=== PATIENT | female | born 1955 | race Caucasian/White ===

== ENCOUNTER 2020-09-23 07:15 | Emergency (ER) | payer MEDICARE ==
[2020-09-23] MEDS ORDERED: Ondansetron 4 MG Tab.DIS PO ONE (07:44)
[2020-09-23] MEDS ORDERED: Acetaminophen/HYDROcodone 325-5 MG Tab PO ONE (07:45)
[2020-09-23] MEDS ORDERED: Cyclobenzaprine 10 MG Tab PO ONE (08:30)
--- NOTE | 2020-09-23 09:52 | EDM.PDOC ---
ED HPI GENERAL MEDICAL PROBLEM - General Chief Complaint: Back Pain or Injury Stated Complaint: back pain Time Seen by Provider: 09/23/20 07:20 Source of Information: Reports: Patient History Limitations: Reports: No Limitations - History of Present Illness INITIAL COMMENTS - FREE TEXT/NARRATIVE: Patient presented to the ED because of low back pain for the past 2 months. The pain is sharp 10/10 at worst, radiating to the rt buttock. There is no lost of bowel or bladder control. She took Naproxen which was prescribed by her PMD without any significant relief. Left Lower Back Pain Score (Numeric/FACES): 8 - Related Data Allergies Allergy/AdvReac Type Severity Reaction Status Date / Time Sulfa (Sulfonamide Allergy Other Verified 09/23/20 07:34 Antibiotics) Home Meds: Home Meds Albuterol Sulfate [Proair Hfa] 1 - 2 puff INH Q4HR PRN 09/23/20 [History] Albuterol [Proventil Neb Soln] 1 inh NEB Q6HR PRN 09/23/20 [History] Aspirin [Halfprin] 81 mg PO DAILY 09/23/20 [History] Benazepril [Lotensin] 40 mg PO DAILY 09/23/20 [History] Cyclobenzaprine [Flexeril] 10 mg PO Q8H PRN #30 tab 09/23/20 [Rx] Empagliflozin [Jardiance] 10 mg PO DAILY 09/23/20 [History] Fluticasone Propion/Salmeterol [Advair 250-50 Diskus] 1 puff INH BID 09/23/20 [History] Gabapentin [Neurontin] 1 - 2 cap PO BEDTIME 09/23/20 [History] Latanoprost/Pf [Latanoprost 0.005% Eye Drop] 1 drop EYEBOTH BEDTIME 09/23/20 [History] Naproxen 500 mg PO BID 09/23/20 [History] Nitrofurantoin Monohyd/M-Cryst [Macrobid 100 mg Capsule] 100 mg PO BID #10 capsule 09/23/20 [Rx] Tiotropium [Spiriva HandiHaler] 1 cap INH DAILY 09/23/20 [History] atorvaSTATin [Lipitor] 40 mg PO DAILY 09/23/20 [History] glipiZIDE [Glucotrol XL] 10 mg PO ACBREAKFAST 09/23/20 [History] metFORMIN [Glucophage] 1,000 mg PO BID 09/23/20 [History] traMADol [Ultram] 50 mg PO Q8H PRN #15 tab 09/23/20 [Rx] Past Medical History HEENT History: Reports: Impaired Vision Cardiovascular History: Reports: Hypertension Respiratory History: Reports: COPD Gastrointestinal History: Reports: Cholelithiasis Genitourinary History: Reports: None L[employer]ILER History: Reports: Musculoskeletal History: Reports: Other (See Below) Other Musculoskeletal History: ankle fracture Neurological History: Reports: None Psychiatric History: Reports: None Endocrine/Metabolic History: Reports: Diabetes, Type II Hematologic History: Reports: None Oncologic (Cancer) History: Reports: None Dermatologic History: Reports: None - Infectious Disease History Infectious Disease History: Reports: None - Past Surgical History HEENT Surgical History: Reports: None Cardiovascular Surgical History: Reports: None Respiratory Surgical History: Reports: None GI Surgical History: Reports: Cholecystectomy Female Surgical History: Reports: None Endocrine Surgical History: Reports: None Neurological Surgical History: Reports: None Musculoskeletal Surgical History: Reports: None Dermatological Surgical History: Reports: None Social & Family History - Tobacco Use Tobacco Use Status *Q: Current Every Day Tobacco User Years of Tobacco use: 50 Packs/Tins Daily: 0.5 - Caffeine Use Caffeine Use: Reports: Coffee - Recreational Drug Use Recreational Drug Use: No ED ROS GENERAL - Review of Systems Review Of Systems: See Below Constitutional: Reports: No Symptoms HEENT: Reports: No Symptoms Respiratory: Reports: No Symptoms Cardiovascular: Reports: No Symptoms Endocrine: Reports: No Symptoms GI/Abdominal: Reports: No Symptoms : Reports: No Symptoms Musculoskeletal: Reports: Back Pain Skin: Reports: No Symptoms Neurological: Reports: No Symptoms Psychiatric: Reports: No Symptoms ED EXAM,LOWER BACK PAIN/INJURY - Physical Exam Exam: See Below Exam Limited By: No Limitations General Appearance: Alert, No Apparent Distress Ears: Normal External Exam, Normal Canal Nose: Normal Inspection, Normal Mucosa, No Blood Throat/Mouth: Normal Inspection, Normal Lips Head: Atraumatic, Normocephalic Neck: Normal Inspection, Supple, Non-Tender, Full Range of Motion Respiratory/Chest: No Respiratory Distress, Lungs Clear, Normal Breath Sounds, No Accessory Muscle Use, Chest Non-Tender Cardiovascular: Normal Peripheral Pulses, Regular Rate, Rhythm, No Edema, No Gallop, No JVD, No Murmur, No Rub GI/Abdominal: Normal Bowel Sounds, Soft, Non-Tender, No Organomegaly, No Distention, No Abnormal Bruit Back Exam: Normal Inspection, Full Range of Motion, Muscle Spasm Extremities: Normal Inspection, Normal Range of Motion, Non-Tender Neurological: Alert, Normal Mood/Affect, Normal Dorsiflexion Psychiatric: Normal Affect, Normal Mood Course - Vital Signs Text/Narrative:: Ct lumbar [id number] result Zofran ODT 4 mg PO x1 [place] 5mg, 2 PO x1 Last Recorded V/S: Last Vital Signs Temp 36.9 C 09/23/20 07:15 Pulse 95 09/23/20 07:15 Resp 16 09/23/20 07:15 BP 150/78 H 09/23/20 07:15 Pulse Ox 95 09/23/20 07:15 - Orders/Labs/Meds Orders: Active Orders 24 hr Category Date Time Status Lumbar Spine wo Cont [CT] Stat Exams 09/23/20 08:30 Taken Labs: Laboratory Tests 09/23/20 Range/Units 09:10 Urine Color Yellow (YELLOW) Urine Appearance Slightly cloudy (CLEAR) Urine pH 5.0 (5.0-6.5) Ur Specific [place] 1.030 H (1.010-1.025) Urine Protein Trace (NEGATIVE) mg/dL Urine Glucose (UA) Normal (NORMAL) mg/dL Urine Ketones Negative (NEGATIVE) mg/dL Urine Occult Blood Negative (NEGATIVE) Urine Nitrite Negative (NEGATIVE) Urine Bilirubin Small H (NEGATIVE) Urine Urobilinogen 1 H (NEGATIVE) mg/dL Ur Leukocyte Esterase Moderate H (NEGATIVE) Urine RBC 0-5 (0-5) Urine WBC 10-20 H (0-5) Ur Squamous Epith Cells Many H (NS,R,O) Urine Bacteria Moderate H (NS) Urine Yeast Moderate H (NS) Meds: Medications Discontinued Medications Generic Name Dose Route Start Last Admin Trade Name Freq PRN Reason Stop Dose Admin Hydrocodone Bitart/Acetaminophen 2 tab 09/23/20 07:45 09/23/20 07:55 Acetaminophen/Hydrocodone 325-5 Mg Tab PO 09/23/20 07:46 2 tab ONETIME ONE Administration Cyclobenzaprine HCl 10 mg 09/23/20 08:30 09/23/20 08:34 Cyclobenzaprine 10 Mg Tab PO 09/23/20 08:31 10 mg ONETIME ONE Administration Ondansetron HCl 4 mg 09/23/20 07:44 09/23/20 07:54 Ondansetron 4 Mg Tab.Dis PO 09/23/20 07:45 4 mg ONETIME ONE Administration Departure - Departure Time of Disposition: 10:30 Disposition: Home, Self-Care 01 Condition: Good Clinical Impression: Low back pain, DDD (degenerative disc disease), UTI (urinary tract infection) - Discharge Information Prescriptions: Cyclobenzaprine [Flexeril] 10 mg PO Q8H PRN #30 tab PRN Reason: Spasms Nitrofurantoin Monohyd/M-Cryst [Macrobid 100 mg Capsule] 100 mg PO BID #10 capsule traMADol [Ultram] 50 mg PO Q8H PRN #15 tab PRN Reason: Pain Referrals: Anitha Hines MD [Primary Care Provider] - Additional Instructions: Please read discharge instructions on low back pain, Disc Disease, and UTI Drink at least 2 liters of water daily Macrobid twice daily for 5 [id number] for your UTI) Tramadol 2tablets with tylenol 1000 and flexeril 10 mg every 8 mg every 8 hours as needed for pain and spasms Follow up as needed Sepsis Event Note (ED) - Evaluation Sepsis Screening Result: No Definite Risk - Focused Exam Vital Signs: Vital Signs Temp Pulse Resp BP Pulse Ox 09/23/20 07:15 36.9 C 95 16 150/78 H 95 - My Orders Last 24 Hours: My Active Orders 09/23/20 08:30 Lumbar Spine wo Cont [CT] Stat - Assessment/Plan Last 24 Hours: My Active Orders 09/23/20 08:30 Lumbar Spine wo Cont [CT] Stat
--- NOTE | 2020-09-23 10:59 | CT ---
INDICATION: Severe low back pain. CT LUMBOSACRAL SPINE WITHOUT CONTRAST: Spiral 2.5 mm axial sections were obtained through the lumbosacral spine with sagittal and coronal reconstructions as well as axial reconstructions angled through the L3-4, L4-5, and L5-S1 disk spaces. A mild dextroconvex scoliosis of the mid lumbar spine is noted. The disks above the L4-5 level appear to be fairly normal with minimal degenerative changes at the apophyseal joints of the upper middle level lumbar spine. Mild degenerative changes are also noted at the L5-S1 apophyseal joints and at the L4-5 joint apophyseal joint on the left. At L4-5 there is moderate moderately severe bulging of the disk with spinal stenosis of moderate degree on that basis and on the basis of prominent ligamenta flava. Hypertrophic changes are noted at L5-S1 with marked narrowing of the disk space, vacuum disk space phenomenon, and ruptured annulus with gas in the right recess along the exiting nerve root. There is narrowing of the neural foramina at L5- S1 due to hypertrophic changes posterolaterally off vertebral bodies L5-S1. Vertebral body heights appear to be fairly well maintained, disk spaces overall except at the L5-S1 level appear to be fairly well maintained with question of slight narrowing at L4-5. Overall bone density appeared to be normal. Incidentally noted are calcifications in the abdominal aorta and iliac arteries, as well as the splenic artery and minimally in the left renal artery. IMPRESSION: 1. Relatively mild hypertrophic degenerative changes in posterior elements with most prominent hypertrophic changes anteriorly and posteriorly off the L5-S1 level vertebrqal bodies with spurs narrowing the neural foramina at that level to a moderate degree. 2. Spinal stenosis L4-5 due to bulging disk and prominent ligamenta flava. 3. Annulus ruptured locally o9n thr right at the L5-S1 level with gas in the lateral recess on the right - disk material does not appear to be prominent in that area, however. 4. ASD. Report was called to Dr. Comer at 1014 hours 09/23/20. Total exam DLP was 966.86 mGy-cm. MTDD
== END 2020-09-23 10:10 | disposition home or self-care (01) ==
LOC: FB.ED 07:15
DX: N39.0 Urinary tract infection, site not specified (principal); M51.37 Other intervertebral disc degeneration, lumbosacral region
CPT/HCPCS: 72131; 81001; 87086; 99283; 99284; A9270

== ENCOUNTER 2021-06-23 22:40 | Emergency (ER) | payer MEDICARE, OTHER ==
[2021-06-23] MEDS ORDERED: Insulin Regular, Human 100 Units/ML 3 ML Vial SUBCUT ONE (22:51)
[2021-06-23 23:18] LABS: HEMOGLOBIN A1C 11.2 % (<5.7)
[2021-06-24] MEDS ORDERED: Insulin Regular, Human 100 Units/ML 3 ML Vial SUBCUT ONE (00:17)
== END 2021-06-24 00:25 | disposition home or self-care (01) ==
LOC: FB.ED 22:40
DX: E11.65 Type 2 diabetes mellitus with hyperglycemia (principal); I10 Essential (primary) hypertension; J44.9 Chronic obstructive pulmonary disease, unspecified; Z88.2 Allergy status to sulfonamides; Z79.82 Long term (current) use of aspirin; Z79.4 Long term (current) use of insulin; Z79.899 Other long term (current) drug therapy
CPT/HCPCS: 36415; 80048; 81001; 82947; 83036; 84484; 85025; 93005; 93010; 99282; 99285-25; J1815-GY

== ENCOUNTER 2021-09-22 15:41 | Emergency (ER) | payer MEDICARE, OTHER ==
[2021-09-22] MEDS ORDERED: Ketorolac 30 MG/ML SDV IM STA (16:20)
[2021-09-22] MEDS ORDERED: Ondansetron 4 MG Tab.DIS PO STA (16:31)
== END 2021-09-22 17:15 | disposition home or self-care (01) ==
LOC: FB.ED 15:41
DX: G43.909 Migraine, unspecified, not intractable, without status migrainosus (principal); J45.909 Unspecified asthma, uncomplicated; I10 Essential (primary) hypertension; E11.9 Type 2 diabetes mellitus without complications; Z90.49 Acquired absence of other specified parts of digestive tract; Z79.899 Other long term (current) drug therapy; Z79.82 Long term (current) use of aspirin; Z79.4 Long term (current) use of insulin; Z79.84 Long term (current) use of oral hypoglycemic drugs; Z88.2 Allergy status to sulfonamides
CPT/HCPCS: 96372; 99283; J1885; Q0162